=== PATIENT | female | born 1935 | race Caucasian/White ===

== ENCOUNTER 2017-01-08 10:29 | Inpatient (IN) | payer OTHER ==
--- NOTE | ~2017-01-08 | US84 ---
[id number] [facility] [address] [place], [place] [address] [id number] I MR#: [id number] Acc #: [id number] NAME: BRISSA WEBB : 1935 SEX: F STUDY DATE/TIME: 01/08/2017 17:34 UNIT: [facility] ROOM: 564 STUDY DESCRIPTION: US LE Veins Complete Deng Stdy Attending Physician: Nuha Joya M.D. Ordering Physician: Nuha Joya M.D. Primary Care Physician: Demetrio Chandler M.D. MEDICAL IMAGING REPORT This report is preliminary unless electronic signature is present EXAM Lower extremity venous ultrasound, complete bilateral, 01/08/2017 HISTORY Bilateral swelling and oozing for 2 days. No history of DVT. No blood thinners. Bilateral pain, swelling, oozing 2 days. TECHNIQUE Venous ultrasound examination of both lower extremities was performed using grayscale, spectral Doppler and color flow Doppler imaging. FINDINGS The examination is negative. There is no evidence of deep venous thrombus from the groin to the lower calf bilaterally. Visualized greater saphenous veins are also patent. IMPRESSION Negative examination. No evidence of lower extremity deep venous thrombosis. ADDENDUM: Some areas of subcutaneous edema noted in the bilateral lower extremities. Dictated by... Alex Louis M.D. THIS IS AN ELECTRONICALLY VERIFIED REPORT Alex Louis M.D. at 01/09/2017 11:31 AM Sandeep TD: 01/09/2017 04:58 JOB #: [id number] MEDICAL IMAGING REPORT Page 1 of 1 COPY
--- NOTE | ~2017-01-08 | EKG ---
PATIENT: BRISSA WEBB UNIT #: [id number] Ventricular Rate: 107 BPM Atrial Rate: 107 BPM P-R Interval: 114 ms QRS Duration: 76 ms Q-T Interval: 330 ms QTC Calculation(Bezet): 440 ms P [place]: 81 degrees Calculated R [place]: 57 degrees Calculated T [place]: 60 degrees Diagnosis Line: Sinus tachycardia Diagnosis Line: Right atrial enlargement Diagnosis Line: Borderline ECG Diagnosis Line: No previous ECGs available Diagnosis Line: Confirmed by DRAKE CAROLINA MD ([id number]) on Diagnosis Line: 01/08/2017 10:20:03 PM INTERPRETING MD: JAD
--- NOTE | ~2017-01-08 | CT57 ---
[facility] A Service of [facility] RADIOLOGY TEXT RESULTS PATIENT: BRISSA WEBB LOCATION: [facility] [place] [facility] 564-01 : 35 UNIT #: [id number] AGE: [address]: Jessica Guerrero MD SEX: F ORDER DR: [id number] [facility] [address] [place], [place] [address] [id number] I MR#: [id number] Acc #: [id number] NAME: BRISSA WEBB : 1935 SEX: F STUDY DATE/TIME: 01/08/2017 17:26 UNIT: [facility] [place] [facility] ROOM: [facility] STUDY DESCRIPTION: CT Chest Wo Cont Attending Physician: Nuha Joya M.D. Ordering Physician: Nuha Joya M.D. Primary Care Physician: Demetrio Chandler M.D. MEDICAL IMAGING REPORT This report is preliminary unless electronic signature is present EXAM CT of the chest HISTORY Sepsis, COPD exacerbation, chronic respiratory failure. Lung nodule. FINDINGS CT chest performed without administration of intravenous contrast. Comparison 03/31/2014. This CT examination was performed with one or more of the following radiation dose reduction techniques: automatic exposure control, adjustment of mA and/or kV according to patient size, and iterative reconstruction. No axillary adenopathy. No mediastinal or hilar adenopathy. Heart normal in size. Coronary arterial calcifications. No pleural effusions. Posterior right hemidiaphragm eventration. Mid to posterior left hemidiaphragm eventration. Similar appearance on prior examination. Liver shows multiple calcified granulomata. No suspicious focal abnormality. The gallbladder contains a 3.1 cm calculus. It is otherwise unremarkable with no inflammatory change. No biliary ductal dilatation suggested. Multiple calcified granulomata in the spleen. Visualized pancreas, adrenal glands, kidneys unremarkable. Esophagus, stomach, visualized small bowel and colon notable for uncomplicated colonic diverticulosis. Pulmonary parenchyma shows extensive centrilobular and panlobular emphysema throughout the lungs. Mild apical subpleural fibrotic change. There is a relatively dense right middle lobe lateral segment 5-mm nodule. Increased in overall volume from the prior examination when it measured up to 4 mm in maximum. There is an 8 mm right lower lobe pulmonary nodule laterally. It measured 7 mm in March 2014. Probably not significantly changed and likely benign given minimal change since 2013. Subpleural atelectasis or fibrotic change right middle lobe anteriorly. Some patchy and linear densities at the right lung base posteriorly probably atelectatic in nature. Mild pneumonitis not excluded. There is no dense STS. [facility] A Service of [facility] RADIOLOGY TEXT RESULTS PATIENT: BRISSA WEBB LOCATION: [facility] [place] [facility] 564-01 : 35 UNIT #: [id number] AGE: [address]: Jessica Guerrero MD SEX: F ORDER DR: airspace disease. The left lung shows some areas of mild subpleural fibrotic change in the periphery of the lung. No suspicious nodule. Minimal dependent atelectasis or pneumonitis at the left lung base posteriorly. Chest radiograph earlier today raised the possibility of a left lung nodule. No suspicious nodule seen in the left lung. Atherosclerotic arterial calcifications. No aneurysm. The bony structures show mild T8 compression deformity new compared to 2014. Mild to moderate anterior wedge compression deformity T11 new compared to prior study. Moderate compression deformity T12. Some retropulsion of the posterior superior endplate of T12. There is mild mass effect on thecal sac and mild central spinal canal narrowing. I do not see clear indication of cord compression. There is a suggestion of visualized fracture planes in the superior endplate of T12. Possibility that this could be a subacute compression deformity could be considered. Correlate with symptoms and any known history of trauma. There is no paraspinal hematoma or inflammatory change. No other potential acute bony abnormalities are seen. IMPRESSION 1. Extensive emphysema. 2. Areas of subpleural fibrotic change at the apices and in the periphery of the left lung. No end-stage fibrosis. 3. There are some patchy and linear densities at the bilateral dependent lung bases right greater than left probably atelectatic in nature but areas of mild pneumonitis superimposed on architecturally distorted emphysematous lung could be considered. 4. 5 mm nodule lateral segment right middle lobe image 104. It measured 4 mm in maximum diameter in 2013. It does appear to have increased in overall volume compared to the prior study. 6-month CT followup recommended. There is an 8 mm right lower lobe pulmonary nodule at the same level. It measured 7 mm in 2014. Probably no significant change and likely benign in nature. Attention at followup recommended. No other pulmonary nodules are seen. 5. Atherosclerotic arterial calcifications in coronary and systemic circulation. 6. Uncomplicated cholelithiasis. 7. Uncomplicated colonic diverticulosis on very limited views of colon and upper abdomen. 8. Eventration of the bilateral posterior diaphragms left greater than right. Similar appearance on prior study. 9. Compared to 2014, there are mild to moderate chronic-appearing compression deformities of the T8 and T11 vertebral bodies without significant spinal canal compromise. There is an age indeterminate at least subacute and potentially chronic compression deformity of the T12 vertebral body. Moderate in degree. No underlying bony destructive process is seen. These are favored to be osteoporotic compression deformities. At T12, there is retropulsion of posterior-superior endplate with some mild spinal canal narrowing but STS. [facility] A Service of [facility] RADIOLOGY TEXT RESULTS PATIENT: BRISSA WEBB LOCATION: [facility] [place] [facility] 564-01 : 35 UNIT #: [id number] AGE: [address]: Jessica Guerrero MD SEX: F ORDER DR: no definite cord contact. Please correlate with patient's presentation and symptoms. If there is ongoing concern regarding the thoracic spine, it could be further evaluated with MRI if the patient is a candidate or dedicated CT. Dictated by... Alex Louis M.D. THIS IS AN ELECTRONICALLY VERIFIED REPORT Alex Louis M.D. at 01/09/2017 11:31 AM SINA/rebekah TD: 01/09/2017 05:57 JOB #: [id number] MEDICAL IMAGING REPORT Page 1 of 1 COPY
--- NOTE | ~2017-01-08 | CR72 ---
[facility] A Service of [facility] RADIOLOGY TEXT RESULTS PATIENT: BRISSA WEBB LOCATION: [facility] 564 : 35 UNIT #: [id number] AGE: [address]: Jessica Guerrero MD SEX: F ORDER DR: [id number] [facility] [address] [place], [place] [address] [id number] I MR#: [id number] #: [id number] NAME: BRISSA WEBB : 1935 SEX: F STUDY DATE/TIME: 01/08/2017 11:36 UNIT: [facility] ROOM: [facility] STUDY DESCRIPTION: CR Chest Single View Portable Attending Physician: Nuha Joya M.D. Ordering Physician: Bunny John M.D. Primary Care Physician: Demetrio Chandler M.D. MEDICAL IMAGING REPORT This report is preliminary unless electronic signature is present EXAM Portable chest radiograph INDICATIONS Shortness of breath and cough, this started today. Patient does have a history of left breast cancer. FINDINGS Comparison made to prior exam from March 24, 2014. Heart size is within normal limits. Patient does have background emphysematous changes. There is eventration of the left hemidiaphragm, which was present on the prior study, as well as some chronic-appearing scarring at both lung bases. There is a suggestion of a nodular density within the left hemithorax that potentially could be related to summation of shadows, underlying nodule is not excluded. It is new when compared to the exam from March 2014. Further evaluation with dedicated CT of the chest, preferably with contrast, is suggested. Dictated by... Katerina Whalen M.D. THIS IS AN ELECTRONICALLY VERIFIED REPORT Katerina Whalen M.D. at 01/10/2017 1:21 PM AFF/psc TD: 01/08/2017 20:11 JOB #: [id number] MEDICAL IMAGING REPORT Page 1 of 1 COPY
--- NOTE | ~2017-01-08 | DS ---
Unit #: [id number] #: [id number] Patient: BRISSA WEBB [id number] [address] [place], [place] [address] [id number] I MR#: [id number] NAME: BRISSA WEBB ROOM: 564 Age: 81 Sex: F Admission Date: 01/08/2017 : 1935 Discharge Date: Attending Physician: Jessica Guerrero M.D. Primary Care Physician: Demetrio Chandler M.D. DISCHARGE SUMMARY DISCHARGE DIAGNOSES 1. Sepsis from right leg cellulitis. 2. Right leg cellulitis, acute on chronic. 3. Chronic obstructive pulmonary disease with mild exacerbation. 4. Chronic hypoxic respiratory failure, on two liters of oxygen. 5. Right lung nodule, needs repeat CT in six month's time to follow up. 6. Mild protein malnutrition. 7. Mild hyponatremia. 8. 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 9. Smoking. 10. Hypothyroidism. 11. History of breast cancer, status post lumpectomy and radiation treatment. CONSULTATIONS None. PROCEDURES None. DIAGNOSTIC STUDIES LABORATORY: Wound cultures are growing serratia. Sodium 135, potassium 4, and creatinine 0.6. WBC 9.7, hemoglobin 12.6, and platelets 171,000. Blood cultures negative. Troponin is negative. Lactic acid 1. Initial lactic acid was 2/2. BNP 44. IMAGING: Chest x-ray shows chronic-appearing lungs and nodular density left side. CT chest without contrast shows extensive emphysema. A 5 mm lateral segment right middle lobe nodule present. Six-month CT followup needed. Ultrasound of the extremities negative for DVT. ALLERGIES Iodinated dye, sulfa, and codeine. DISCHARGE MEDICATIONS 1. DuoNeb 3 mL inhalation 4 times daily p.r.n. shortness of breath. 2. Flonase nasal spray 1 b.i.d. 3. Clobetasol ointment apply topically b.i.d. 4. Bactroban ointment apply topically b.i.d. along with clobetasol. 5. Duratears ophthalmic ointment p.r.n. 6. Senna 2 tablets p.o. daily. 7. Mucinex D ER 1 tablet p.o. b.i.d. p.r.n. cough. 8. Astelin 2 sprays nasally b.i.d. 9. Fosamax 70 mg p.o. every Monday. Unit #: [id number] #: [id number] Patient: BRISSA WEBB 10. Singulair 10 mg at bedtime. 11. Levaquin 750 p.o. daily for 7 days. 12. Synthroid 88 mcg p.o. daily. 13. Vitamin D3 at 2000 units p.o. daily. HOSPITAL COURSE An 81-year-old admitted because of right leg swelling and edema. Sepsis from right leg cellulitis. Patient received antibiotics. Resolved. Right leg cellulitis. Patient was given broad spectrum antibiotics. Blood cultures negative. Wound cultures are growing serratia which is sensitive to Levaquin. Patient received IV Zosyn and vancomycin which will be changed to p.o. Levaquin. Right lung nodule with severe emphysema. Patient needs a CT in six month's time and follow with family physician for that. Chronic obstructive pulmonary disease with exacerbation, mild, stable. Did not need any Solu-Medrol. Continue with DuoNeb. Hypothyroidism, stable. DISPOSITION Discharge home. FOLLOWUP 1. With family physician in one week's time. 2. With home health for dressing changes. 3. With [facility] in one week's time with Dr. Pollack. 1. Dictated by... Gibran Leonardo/aram TD: 01/11/2017 15:00 JOB #: [id number] DISCHARGE SUMMARY Page 1 of 1 X Jessica Guerrero MD X DISCHARGE SUMMARY
--- NOTE | ~2017-01-08 | HP ---
Unit #: [id number] #: [id number] Patient: BRISSA WEBB [id number] [address] [place], [place] [address] [id number] MR#: [id number] NAME: BRISSA WEBB ROOM: Age: 81 Sex: F Admission Date: 01/08/2017 : 1935 Attending Physician: Bunny John M.D. Primary Care Physician: Demetrio Chandler M.D. HISTORY AND PHYSICAL CHIEF COMPLAINT Bilateral lower extremity swelling. HISTORY OF PRESENT ILLNESS The patient is an 81-year-old female with past medical history of COPD, chronic respiratory failure, hypothyroidism, breast cancer, tobacco abuse, who presented to the emergency department for evaluation of the above. The patient states that she has had a three to four day history of worsening lower extremity swelling. She states that the swelling and redness as well as pain became acutely worse within the past 24 hours. She states that the pain woke her from sleep this morning around 3:30. She denies any trauma to the legs. No fever. She has had increasing shortness of breath and productive cough. She denies any chest pain. She states that her appetite has been okay. No vomiting or diarrhea. Of note, the patient was seen in an immediate care center about three weeks ago and diagnosed with pneumonia. She was placed on doxycycline as well as prednisone. The last dose of prednisone was yesterday. In the emergency department, initial pulse and blood pressure were 105 and 146/61 respectively, temperature 98.1. Laboratory is notable for white blood cell count of 24.2. Chest x-ray showed a background of emphysematous changes as well as a nodular density on the left. CT of the chest was recommended for further evaluation. She was given clindamycin in the emergency department. She is being admitted to [facility] for evaluation and further treatment. PAST MEDICAL HISTORY 1. The patient denies any hospitalizations in the past 10 years. 2. COPD, followed by (1) , ([facility]). 3. Chronic respiratory failure on 2 L of oxygen at night. 4. Hypothyroidism. 5. History of breast cancer, status post lumpectomy and radiation treatment followed by Dr. Bernabe. PAST SURGICAL HISTORY 1. Lumpectomy. 2. Multiple eye surgeries. 3. Hysterectomy. 4. Hernia repair. SOCIAL HISTORY The patient's grandson lives with her. She smokes a half pack of Unit #: [id number] #: [id number] Patient: TRACEYBRISSA cigarettes daily. She denies alcohol use. She walks without assistance. CODE STATUS Her code status is a full code. FAMILY HISTORY Notable for her dad dying at the age of 90. Her mother at the age of 80. She had some type of congenital heart defect. ALLERGIES Sulfa, codeine, IV dye. HOME MEDICATIONS 1. Azelastine. 2. Singulair. 3. Fosamax. 4. Combivent. 5. Flonase. 6. Synthroid. 7. Mucinex. 8. Senna S. 9. Vitamin D3. Home medications will need to be reviewed and verified. REVIEW OF SYSTEMS A complete review of systems is negative, except as indicated in the HPI. DIAGNOSTIC STUDIES LABORATORY: Complete blood count notable for white blood cell count of 24.2. Comprehensive metabolic panel notable for sodium of 131, chloride 93, glucose 142. BNP is 44. Troponin is less than 0.05. IMAGING: Chest x-ray shows emphysematous changes with a nodular density on the left. CT of the chest was recommended. CARDIOVASCULAR: EKG showed sinus tachycardia with a rate of 107 beats per minute. PHYSICAL EXAMINATION VITAL SIGNS: Temperature is 98.1, pulse 105, respirations 16, blood pressure 146/61. Blood pressure dropped to 87/51 during the course of her evaluation in the emergency department. She was given 1 L of normal saline. Most recent blood pressure is 122/53. Oxygen saturation 96% on room air. GENERAL: The patient is a female, who is awake and alert in no acute distress. HEENT: The head is atraumatic. The patient does have proptosis involving the right eye as well as asymmetry involving the eyes. That is not a new problem. Mucous membranes are moist. NECK: Supple. Trachea is midline. CARDIOVASCULAR: Regular rate and rhythm. LUNGS: Demonstrate scattered expiratory wheezes. Breathing is not labored with conversation. ABDOMEN: Soft, nontender with bowel sounds present in all four quadrants. EXTREMITIES: The right lower extremity is erythematous circumferentially Unit #: [id number] #: [id number] Patient: BRISSA WEBB from the ankle to just distal to the knee. It is weeping, tender to palpation. There is a palpable 2+ dorsalis pedis pulse. The left lower extremity shows 2+ pitting edema with mild erythema as well. NEUROLOGIC: The patient is awake and alert. She follows commands. PYSCHIATRIC: Mood and affect are normal. The patient is cooperative. SKIN: Demonstrates the previously described abnormalities. ASSESSMENT The patient is an 81-year-old female with: 1. Right lower extremity cellulitis: The patient received clindamycin in the emergency department. 2. Sepsis: The patient's white blood cell count is 24.2. She has been on prednisone for chronic obstructive pulmonary disease exacerbation with the last dose being yesterday. 3. Chronic obstructive pulmonary disease exacerbation: The patient recently completed doxycycline and prednisone. 4. Chronic respiratory failure on 2 L of oxygen at night, followed by (2) . 5. Lung nodule: The patient is allergic to IV dye. The patient states that she has been told she has a nodule in the past but thought it was on right side. 6. Hypothyroidism. 7. History of blood culture, status post lumpectomy and radiation treatment. 8. Tobacco abuse. PLAN 1. Admit to intermediate level. 2. Normal saline at 75 mL at hour. 3. Healthy heart diet. 4. Blood cultures x2. 5. Wound culture and sensitivity. 6. Vancomycin IV and Zosyn IV for cellulitis pending further workup. 7. Bilateral lower extremity venous Doppler. 8. Sepsis protocol with STAT lactic acid and repeat. 9. Supplemental oxygen. 10. DuoNeb. 11. Mucinex. 12. CT of the chest without contrast for further evaluation of lung nodule. The patient cannot have IV dye due to allergy. 13. TSH. 14. Serial cardiac enzymes. 15. P.r.n. Tylenol. 16. Monitor blood pressure closely. 17. Repeat labs in the morning. 18. Additional workup and consultants based on above. Dictated by Nuha Joya M.D. Brandi TD: 01/08/2017 16:21 JOB #: [id number] Unit #: [id number] #: [id number] Patient: BRISSA WEBB HISTORY AND PHYSICAL Page 1 of 1 X Nuha Joya MD HISTORY AND PHYSICAL
[2017-01-08 11:42] LABS: BASOPHIL% 0.2 % (0-2.5); EOSINOPHIL# 0.1 X10e3 (0-0.7); EOSINOPHIL% 0.2 % (0.0-7.0); HEMATOCRIT 47.4 % (35.0-45.0); HEMOGLOBIN 15.5 gm/dL (12.0-16.0); LYMPHOCYTE# 1.8 X10e3 (1.0-3.5); LYMPHOCYTE% 7.2 % (17.0-45.0); MEAN CELL VOLUME 88.5 FL (83-96); MEAN CORPUSCULAR HGB CONC 32.8 g/dL (30-36); MEAN PLATELET VOLUME 9.8 FL (6.5-11.5); MONOCYTE# 1.8 X10e3 (0-1.0); MONOCYTE% 7.3 % (3.0-12.0); NEUTROPHIL# 20.5 X10e3 (1.5-7.1); NEUTROPHIL% 85.1 % (40-75); PLATELET COUNT 217 X10e3 (140-420); RED BLOOD COUNT 5.35 X10e (3.90-5.30); WHITE BLOOD COUNT 24.2 X10e3 (4.0-10.5)
[2017-01-08 11:43] LABS: DIFF IND YES
[2017-01-08 12:05] LABS: BILIRUBIN, DIRECT 0.2 mg/dL (0.0-0.2); BILIRUBIN,INDIRECT 1.1 mg/dL (0.0-0.9); BILIRUBIN,TOTAL 1.3 mg/dL (0.2-2.0); BUN/CREATININE RATIO 18.75; CREATININE SERUM 0.8 mg/dL (0.6-1.4); GLOM FILT RATE Estimated 69.2 mL/min (>60); POTASSIUM 4.1 mmol/L (3.5-5.1); PROTEIN TOTAL SERUM 6.9 g/dL (6.0-8.3)
[2017-01-08 12:06] LABS: ANISOCYTOSIS SL; PLATELET ESTIMATE NORMAL (NORMAL)
[2017-01-08] MEDS ORDERED: PATIENT'S PHARMACY (12:48)
[2017-01-08 13:04] LABS: POC - CKMB <1.0 ng/mL (0.0-7.9); POC - TROPONIN <0.05 ng/mL (<=0.05)
[2017-01-08] MEDS ORDERED: AZELASTINE137 MCG/0. INH (13:13)
[2017-01-08] MEDS ORDERED: SINGULAIR PO (13:14)
[2017-01-08] MEDS ORDERED: FOSAMAX70 MG PO (13:25)
[2017-01-08] MEDS ORDERED: COMBIVENT RESPIM4 GM INH (13:28)
[2017-01-08] MEDS ORDERED: COMBIVENT U/D3 ML INH (13:30)
[2017-01-08] MEDS ORDERED: FLONASE 0.05% N16 G1 (13:31)
[2017-01-08] MEDS ORDERED: SYNTHROID88 MCG PO (13:32)
[2017-01-08] MEDS ORDERED: MUCINEX D ER T1 EAC1 PO (13:33)
[2017-01-08] MEDS ORDERED: SENNA-S TABLET1 EAC1 PO (13:33)
[2017-01-08] MEDS ORDERED: VITAMIN D32000 UNI1 PO (13:34)
[2017-01-08 21:32] LABS: CK TOTAL 32 IU/L (26-140)
[2017-01-09 01:31] LABS: CK TOTAL 33 IU/L (26-140)
[2017-01-09 07:03] LABS: HEMATOCRIT 39.1 % (35.0-45.0); MEAN CELL VOLUME 89.8 FL (83-96); MEAN CORPUSCULAR HEMOGLOBIN 28.9 PG (28-34); MEAN CORPUSCULAR HGB CONC 32.2 g/dL (30-36); MEAN PLATELET VOLUME 9.8 FL (6.5-11.5); RED BLOOD COUNT 4.36 X10e (3.90-5.30); RED CELL DISTRIBUTION WIDTH 13.9 % (11.0-15.5); WHITE BLOOD COUNT 12.1 X10e3 (4.0-10.5)
[2017-01-09 07:06] LABS: HEMOGLOBIN 12.6 gm/dL (12.0-16.0)
[2017-01-09 07:40] LABS: ALBUMIN SERUM 2.7 g/dL (3.5-5.0); BILIRUBIN,TOTAL 1.6 mg/dL (0.2-2.0); BUN/CREATININE RATIO 16.25; CALCIUM SERUM 8.1 mg/dL (8.4-10.2); CREATININE SERUM 0.8 mg/dL (0.6-1.4); GLOM FILT RATE Estimated 69.2 mL/min (>60); POTASSIUM 3.5 mmol/L (3.5-5.1)
[2017-01-10 05:54] LABS: HEMATOCRIT 39.6 % (35.0-45.0); MEAN CELL VOLUME 90.2 FL (83-96); MEAN CORPUSCULAR HEMOGLOBIN 29.6 PG (28-34); MEAN CORPUSCULAR HGB CONC 32.8 g/dL (30-36); MEAN PLATELET VOLUME 9.4 FL (6.5-11.5); RED BLOOD COUNT 4.39 X10e (3.90-5.30); RED CELL DISTRIBUTION WIDTH 14.4 % (11.0-15.5); WHITE BLOOD COUNT 10.2 X10e3 (4.0-10.5)
[2017-01-10 06:42] LABS: ALBUMIN SERUM 2.9 g/dL (3.5-5.0); BILIRUBIN,TOTAL 1.2 mg/dL (0.2-2.0); BUN/CREATININE RATIO 11.11; CALCIUM SERUM 8.2 mg/dL (8.4-10.2); CREATININE SERUM 0.9 mg/dL (0.6-1.4); MAGNESIUM 1.9 mg/dL (1.6-3.0); POTASSIUM 3.9 mmol/L (3.5-5.1); PROTEIN TOTAL SERUM 5.5 g/dL (6.0-8.3)
[2017-01-11 06:36] LABS: BASOPHIL# 0.1 X10e3 (0-0.3); BASOPHIL% 0.7 % (0-2.5); EOSINOPHIL# 0.5 X10e3 (0-0.7); EOSINOPHIL% 4.9 % (0.0-7.0); HEMATOCRIT 38.6 % (35.0-45.0); HEMOGLOBIN 12.6 gm/dL (12.0-16.0); MEAN CELL VOLUME 88.9 FL (83-96); MEAN CORPUSCULAR HEMOGLOBIN 29.1 PG (28-34); MEAN CORPUSCULAR HGB CONC 32.7 g/dL (30-36); MEAN PLATELET VOLUME 9.3 FL (6.5-11.5); MONOCYTE% 10.4 % (3.0-12.0); NEUTROPHIL# 7.2 X10e3 (1.5-7.1); PLATELET COUNT 171 X10e3 (140-420); RED BLOOD COUNT 4.34 X10e (3.90-5.30); RED CELL DISTRIBUTION WIDTH 14.2 % (11.0-15.5); WHITE BLOOD COUNT 9.7 X10e3 (4.0-10.5)
[2017-01-11 06:37] LABS: DIFF IND NO
[2017-01-11 07:37] LABS: CREATININE SERUM 0.6 mg/dL (0.6-1.4); GLOM FILT RATE Estimated 85.5 mL/min (>60)
[2017-01-11] MEDS ORDERED: BACTROBAN15 GM TOP (16:04)
[2017-01-11] MEDS ORDERED: CLOBETASOL PROP30 GM (16:07)
[2017-01-11] MEDS ORDERED: LUBRICANT EYE3.5 G2 OU (16:20)
[2017-01-11] MEDS ORDERED: LEVAQUIN750 MG PO (16:22)
== END 2017-01-11 17:32 | disposition home or self-care (01) | DRG 872 ==
LOC: CED 10:29 → C5C 15:45 → CEDOF 15:45 → CED 16:05 → C5C 18:35 → CEDOF 18:35 → C5C 18:35
PROVIDERS: Emergency Medicine; Family Medicine; Internal Medicine
DX: A41.9 Sepsis, unspecified organism (principal); J96.11 Chronic respiratory failure with hypoxia; J44.1 Chronic obstructive pulmonary disease with (acute) exacerbation; E44.1 Mild protein-calorie malnutrition; E87.1 Hypo-osmolality and hyponatremia; L03.116 Cellulitis of left lower limb; R91.1 Solitary pulmonary nodule; F17.210 Nicotine dependence, cigarettes, uncomplicated; E03.9 Hypothyroidism, unspecified; Z85.3 Personal history of malignant neoplasm of breast; Z88.5 Allergy status to narcotic agent; Z88.2 Allergy status to sulfonamides; Z91.041 Radiographic dye allergy status; Z68.29 Body mass index [BMI] 29.0-29.9, adult
CPT/HCPCS: 36415; 71010; 71250; 80048; 80053; 80076; 80202; 82550; 82553; 82947; 83605; 83735; 83880; 84443; 84484; 85025; 85027; 87040; 87070; 87077; 87186; 87205; 93005; 93970; 94640; 94760; 96365; 97110; 97116; 97161; 97165; 99285; G8978-GP; G8979-GP; G8987-GO; G8988-GO; J1650; J2543; J3370; J3475

== ENCOUNTER 2017-03-22 13:43 | Observation (INO) | payer OTHER ==
[~2017-03-22] VITALS: Ht 154.9 cm; Wt 73.2 kg
--- NOTE | ~2017-03-22 | HP ---
Unit #: [id number] #: [id number] Patient: BRISSA WEBB [id number] [facility]. [place], [place] [address] [id number] MR#: [id number] NAME: BRISSA WEBB ROOM: 71279 Age: 81 Sex: F Admission Date: 03/22/2017 : 1935 Attending Physician: Nuha Joya M.D. Primary Care Physician: Demetrio Chandler M.D. HISTORY AND PHYSICAL CHIEF COMPLAINT Shortness of breath, cough. HISTORY OF PRESENT ILLNESS The patient is an 81-year-old female with a past medical history of COPD, chronic respiratory failure, lung nodule, hypothyroidism, breast cancer, and lymphedema, who presented to the emergency department for evaluation of the above. The patient states that she has had a two to three day history of increasing shortness of breath and productive cough. She denies any fever and no chest pain. She denies any vomiting or diarrhea and no urinary symptoms. The patient was initially seen at an urgent care center and told that her oxygen level was low and to come to the emergency department for further evaluation. In the emergency department, initial oxygen saturation was 96% on two liters. Chest x-ray shows no acute abnormality. She is being admitted to [facility] for evaluation and further treatment. PAST MEDICAL HISTORY 1. Admission to [facility] January 08, 2017, for sepsis secondary to right lower extremity cellulitis. Blood cultures from that admission showed no growth after five days. Wound culture from January 08, 2017, grew 3+ serratia. She was discharged home on Levaquin for an additional seven days. She has had persistent edema and is being seen by the [facility] [place] regarding the legs wounds. The last visit was yesterday. The legs were wrapped at that time. She states that visiting nurses have been changing the wraps three times weekly. 2. Chronic obstructive pulmonary disease followed by [facility]. 3. Chronic respiratory failure on two liters of oxygen at night. 4. Right lung nodule noted on CT of the chest that was done January 08, 2017. Six-month followup is recommended. 5. Hypothyroidism. 6. History of breast cancer, status post lumpectomy and radiation, followed by Dr. Bernabe. PAST SURGICAL HISTORY 1. Lumpectomy. 2. Multiple eye surgeries. 3. Hysterectomy. 4. Hernia repair. Unit #: [id number] #: [id number] Patient: BRISSA WEBB SOCIAL HISTORY The patient's grandson lives with her. She continues to smoke less than a half pack of cigarettes daily. She denies alcohol use. She walks without assistance. Her code status is a Full Code. FAMILY HISTORY Notable for her dad dying at the age of 90. Her mother at the age of 80. She had some type of congenital heart defect. ALLERGIES Sulfa and codeine, as well as IV dye. HOME MEDICATIONS 1. Fosamax 70 mg weekly. 2. Albuterol q.6 hours p.r.n. 3. Azelastine nasal spray daily. 4. Chlorhexidine topical body wash p.r.n. 5. Vitamin D 1000 units daily. 6. Mucinex-DM q.12 hours p.r.n. 7. Flonase daily. 8. Advair 100/50 inhaled b.i.d. 9. Combivent q.6 hours p.r.n. 10. Synthroid 88 mcg daily. 11. Singulair 10 mg daily. 12. Prednisone taper. 13. Promethazine 5 mL t.i.d. p.r.n. 14. Symbicort 160/4.5 inhaled daily. REVIEW OF SYSTEMS A complete review of systems is negative except as indicated in the HPI. The patient states that she was on an antibiotic (the patient thinks possibly Levaquin), as well as prednisone taper in February for possible COPD exacerbation. PHYSICAL EXAMINATION VITAL SIGNS: Temperature 97.7, pulse 92, respirations 18, blood pressure 148/68, and oxygen saturation 96% on 2 liters. GENERAL: Patient is a very pleasant female who is awake, alert, and in no acute distress. HEENT: Head is atraumatic. Mucous membranes are moist. NECK: Supple. Trachea is midline. CARDIOVASCULAR: Regular rate and rhythm. LUNGS: Inspiratory and expiratory wheezes. Breathing is not labored with conversation. ABDOMEN: Soft and nontender with bowel sounds present in all four quadrants. EXTREMITIES: Wrapped bilaterally. They are nontender. NEUROLOGIC: Patient is awake and alert. She follows commands. PSYCHIATRIC: Mood and affect are normal. Patient is cooperative. SKIN: Skin of examined areas is warm and dry. DIAGNOSTIC STUDIES LABORATORY: Troponin is less than 0.05. Complete blood count is essentially normal. Lactic acid is 1.2. Comprehensive metabolic panel notable for a chloride of 98. BNP is 33. IMAGING: Chest x-ray shows no significant change. Unit #: [id number] #: [id number] Patient: BRISSA WEBB CARDIOLOGY: EKG shows normal sinus rhythm with a rate of 94 beats per minute. ASSESSMENT The patient is an 81-year-old female with: 1. Chronic obstructive pulmonary disease exacerbation. 2. Chronic respiratory failure on two liters of oxygen per nasal cannula at night. 3. Lung nodule, right lung. Patient needs a repeat CT in July 2017. 4. Hypothyroidism. Patient had a TSH January 08, 2017, that was 2.03. 5. History of breast cancer, status post lumpectomy and radiation, followed by Dr. Bernabe. 6. Tobacco abuse. 7. Lymphedema followed by the [facility]. PLAN 1. Admit for observation to intermediate level. 2. Regular diet. 3. Supplemental oxygen. 4. DuoNebs q.4 hours while awake and q.2 hours p.r.n. 5. Solu-Medrol 80 mg IV q.12 hours. 6. Doxycycline 100 mg p.o. b.i.d. 7. Serial cardiac enzymes. 8. P.r.n. Tylenol. 9. Protonix for GI prophylaxis since the patient will be on Solu-Medrol. 10. SCDs for DVT prophylaxis. 11. Wound Care consult regarding lymphedema. 12. Repeat labs in the morning. 13. Continue home Mucinex. 14. Additional workup and consultants based on above. 1. Dictated by Gibran Shah TD: 03/22/2017 18:03 JOB #: [id number] HISTORY AND PHYSICAL Page 1 of 1 X Nuha Joya MD HISTORY AND PHYSICAL
--- NOTE | ~2017-03-22 | DS ---
Unit #: [id number] #: [id number] Patient: BRISSA WEBB [id number] [place], [place] [address] [id number] MR#: [id number] NAME: BRISSA WEBB ROOM: 324 Age: 81 Sex: F Admission Date: 03/22/2017 : 1935 Discharge Date: 03/24/2017 Attending Physician: Jessica Guerrero M.D. Primary Care Physician: Demetrio Chandler M.D. DISCHARGE SUMMARY DISCHARGE DIAGNOSES 1. Chronic obstructive pulmonary disease with exacerbation. 2. Chronic respiratory failure on 2 liters oxygen. 3. Lung nodule on the right side. Needs repeat CT in 07/2017. 4. Hypothyroidism. 5. History of breast cancer, status post lumpectomy and radiation. 6. Smoking. 7. Lymphedema, following at [facility], with chronic leg swelling. CONSULTANTS None. PROCEDURES PERFORMED None. DIAGNOSTIC DATA LABORATORY: Glucose 135, white blood cell count 14.9, hemoglobin 13.1, platelets 219. Blood cultures negative. Sodium 134, potassium 4.1, creatinine 0.6, troponins negative. BNP 33. Lactic acid 1.2. ALLERGIES Iodinated contrast, oral and IV dye, sulfa, codeine. DISCHARGE MEDICATIONS 1. Albuterol nebulizer q.6 h. p.r.n. shortness of breath. 2. Symbicort 160 mcg 1 puff inhalation daily. 3. Duo-Nebs inhalation q.6 h. p.r.n. shortness of breath. 4. Prednisone tapering dose. 5. Flonase 1 spray nasally daily. 6. Promethazine 5 ml p.o. t.i.d. p.r.n. cough. 7. Mucinex 600 mg 1 p.o. b.i.d. 8. Astelin 1 spray nasally daily. 9. Chlorhexidine applied topically p.r.n. 10. Fosamax 17 mg p.o. every Monday. 11. Singulair 10 mg daily. 12. Doxycycline 100 mg p.o. b.i.d. 13. Synthroid 88 mcg p.o. daily. 14. Vitamin D 1000 p.o. daily. HOSPITAL COURSE The patient is an 81-year-old admitted because of shortness of breath. Chronic obstructive pulmonary disease with exacerbation: Started on IV Unit #: [id number] #: [id number] Patient: TRACEY,BRISSA Solu-Medrol and duo-nebs. Currently lung are clear. Breathing better. No wheezing. The patient will be discharged on doxycycline and prednisone tapering dose along with her home medications. Hyperglycemia: Likely secondary to steroids. The patient received sliding scale during the hospital course. Hemoglobin A1c result is pending at the time of dictation. Follow up with primary care physician for results. Lung nodule: Right lung. The patient needs repeat CT in 07/2017. Follow up with primary care physician for results. DISPOSITION Discharge home. FOLLOWUP Follow up with family physician in one week time. Dictated by... Gibran Leonardo/fawn TD: 03/24/2017 10:51 JOB #: [id number] CC: Demetrio Chandler M.D. DISCHARGE SUMMARY Page 1 of 1 X Jessica Guerrero MD X DISCHARGE SUMMARY
--- NOTE | ~2017-03-22 | EKG ---
PATIENT: BRISSA WEBB UNIT #: [id number] Ventricular Rate: 94 BPM Atrial Rate: 94 BPM P-R Interval: 126 ms QRS Duration: 68 ms Q-T Interval: 368 ms QTC Calculation(Bezet): 460 ms P [place]: 67 degrees Calculated R [place]: 40 degrees Calculated T [place]: 56 degrees Diagnosis Line: Normal sinus rhythm Diagnosis Line: Nonspecific ST abnormality Diagnosis Line: Abnormal ECG Diagnosis Line: When compared with ECG of 08-JAN-2017 11:18, Diagnosis Line: No significant change was found Diagnosis Line: Confirmed by DRAKE CAROLINA MD ([id number]) on Diagnosis Line: 03/22/2017 10:49:41 PM INTERPRETING MD: JAD
--- NOTE | ~2017-03-22 | CR72 ---
[facility] A Service of [facility] & [facility] RADIOLOGY TEXT RESULTS PATIENT: BRISSA WEBB LOCATION: [facility] 324-01 : 35 UNIT #: [id number] AGE: [address]: Jessica Guerrero MD SEX: F ORDER DR: [id number] [facility] [address] [place], [place] [address] [id number] MR#: [id number] Acc #: [id number] NAME: BRISSA WEBB : 1935 SEX: F STUDY DATE/TIME: 03/22/2017 14:28 UNIT: CEDOF ROOM: 49264 STUDY DESCRIPTION: CR Chest Single View Portable Attending Physician: Nuha Joya M.D. Ordering Physician: Marya Jenkins Primary Care Physician: Demetrio Chandler M.D. MEDICAL IMAGING REPORT This report is preliminary unless electronic signature is present EXAM Single view of the chest dated 03/22/2017 COMPARISON Single view chest dated 01/08/2017. HISTORY Shortness of air and congestion today. FINDINGS Single view of the chest was obtained. There is no significant interval new pleural effusion or pneumothorax. There is diffuse prominence of the interstitial markings suggestive of interstitial lung disease. It is more prominent in lung bases with probably some associated atelectasis. Heart is of normal size. Dictated by... Ben Gonzalez M.D. THIS IS AN ELECTRONICALLY VERIFIED REPORT Ben Gonzalez M.D. at 03/23/2017 5:24 PM CPR/rnr TD: 03/22/2017 18:16 JOB #: [id number] MEDICAL IMAGING REPORT Page 1 of 1 COPY
[~2017-03-22 13:43] MED LIST: AZELASTINE137 MCG/0. INH; BACTROBAN15 GM TOP; CLOBETASOL PROP30 GM; COMBIVENT RESPIM4 GM INH; COMBIVENT U/D3 ML INH; FLONASE 0.05% N16 G1; FOSAMAX70 MG PO; LEVAQUIN750 MG PO; LUBRICANT EYE3.5 G2 OU; MUCINEX D ER T1 EAC1 PO; PATIENT'S PHARMACY; SENNA-S TABLET1 EAC1 PO; SINGULAIR PO; SYNTHROID88 MCG PO; VITAMIN D32000 UNI1 PO
[2017-03-22 14:52] LABS: POC - CKMB 2.9 ng/mL (0.0-7.9); POC - TROPONIN <0.05 ng/mL (<=0.05)
[2017-03-22 15:07] LABS: BASOPHIL% 0.4 % (0-2.5); EOSINOPHIL# 0.3 X10e3 (0-0.7); EOSINOPHIL% 2.8 % (0.0-7.0); HEMATOCRIT 42.6 % (35.0-45.0); HEMOGLOBIN 14.3 gm/dL (12.0-16.0); LYMPHOCYTE% 10.6 % (17.0-45.0); MEAN CELL VOLUME 86.4 FL (83-96); MEAN CORPUSCULAR HEMOGLOBIN 29.1 PG (28-34); MEAN CORPUSCULAR HGB CONC 33.6 g/dL (30-36); MONOCYTE% 10.5 % (3.0-12.0); NEUTROPHIL# 7.5 X10e3 (1.5-7.1); NEUTROPHIL% 75.7 % (40-75); PLATELET COUNT 205 X10e3 (140-420); RED BLOOD COUNT 4.93 X10e (3.90-5.30); RED CELL DISTRIBUTION WIDTH 14.4 % (11.0-15.5); WHITE BLOOD COUNT 9.9 X10e3 (4.0-10.5)
[2017-03-22 15:11] LABS: DIFF IND NO
[2017-03-22 15:29] LABS: ALBUMIN SERUM 3.7 g/dL (3.5-5.0); BILIRUBIN, DIRECT 0.2 mg/dL (0.0-0.2); BILIRUBIN,INDIRECT 0.5 mg/dL (0.0-0.9); BILIRUBIN,TOTAL 0.7 mg/dL (0.2-2.0); BUN/CREATININE RATIO 8.57; CALCIUM SERUM 8.7 mg/dL (8.4-10.2); CREATININE SERUM 0.7 mg/dL (0.6-1.4); GLOM FILT RATE Estimated 81.3 mL/min (>60); POTASSIUM 3.5 mmol/L (3.5-5.1)
[2017-03-22] MEDS ORDERED: ALBUTEROL MININEB NEB (16:08)
[2017-03-22] MEDS ORDERED: AZELASTINE137 MCG/01 (16:08)
[2017-03-22] MEDS ORDERED: VITAMIN D1000 UNI1 PO (16:09)
[2017-03-22] MEDS ORDERED: CHLORHEXIDINE FL1 ML TOP (16:09)
[2017-03-22] MEDS ORDERED: FLONASE ALLERG9.9 ML (16:10)
[2017-03-22] MEDS ORDERED: ADVAIR 100-501 EACH INH (16:10)
[2017-03-22] MEDS ORDERED: MUCINEX DM ER1 EACH PO (16:10)
[2017-03-22] MEDS ORDERED: SINGULAIR PO (16:11)
[2017-03-22] MEDS ORDERED: SYNTHROID88 MCG PO (16:11)
[2017-03-22] MEDS ORDERED: COMBIVENT RESPIM4 GM INH (16:11)
[2017-03-22] MEDS ORDERED: PREDNISONE PO (16:11)
[2017-03-22] MEDS ORDERED: PROMETHAZI6.25 MG/5 PO (16:13)
[2017-03-22] MEDS ORDERED: SYMBICORT INH (16:14)
[2017-03-22 21:07] LABS: CK TOTAL 50 IU/L (26-140)
[2017-03-23 03:09] LABS: CK TOTAL 45 IU/L (26-140)
[2017-03-23 05:54] LABS: HEMATOCRIT 40.8 % (35.0-45.0); HEMOGLOBIN 13.6 gm/dL (12.0-16.0); MEAN CELL VOLUME 86.8 FL (83-96); MEAN CORPUSCULAR HEMOGLOBIN 28.9 PG (28-34); MEAN CORPUSCULAR HGB CONC 33.2 g/dL (30-36); RED BLOOD COUNT 4.7 X10e (3.90-5.30); RED CELL DISTRIBUTION WIDTH 14.5 % (11.0-15.5); WHITE BLOOD COUNT 8.3 X10e3 (4.0-10.5)
[2017-03-23 07:24] LABS: BUN/CREATININE RATIO 11.66; CALCIUM SERUM 8.4 mg/dL (8.4-10.2); CREATININE SERUM 0.6 mg/dL (0.6-1.4); GLOM FILT RATE Estimated 85.5 mL/min (>60); POTASSIUM 4.1 mmol/L (3.5-5.1)
[2017-03-24 05:51] LABS: HEMATOCRIT 38.6 % (35.0-45.0); HEMOGLOBIN 13.1 gm/dL (12.0-16.0); MEAN CELL VOLUME 86.4 FL (83-96); MEAN CORPUSCULAR HEMOGLOBIN 29.3 PG (28-34); MEAN CORPUSCULAR HGB CONC 33.9 g/dL (30-36); RED BLOOD COUNT 4.47 X10e (3.90-5.30); RED CELL DISTRIBUTION WIDTH 14.2 % (11.0-15.5)
[2017-03-24 05:55] LABS: WHITE BLOOD COUNT 14.9 X10e3 (4.0-10.5)
[2017-03-24] MEDS ORDERED: DOXYCYCLINE PO (11:10)
== END 2017-03-24 13:43 | disposition home or self-care (01) ==
LOC: CED 13:43 → CEDOF 17:10 → CED 17:41 → C3A PCU 18:36 → CEDOF 18:36 → C3A PCU 03-23 08:29
PROVIDERS: Emergency Medicine; Family Medicine; Internal Medicine
DX: J44.1 Chronic obstructive pulmonary disease with (acute) exacerbation (principal); J96.10 Chronic respiratory failure, unspecified whether with hypoxia or hypercapnia; R91.1 Solitary pulmonary nodule; E03.9 Hypothyroidism, unspecified; I89.0 Lymphedema, not elsewhere classified; F17.210 Nicotine dependence, cigarettes, uncomplicated; Z85.3 Personal history of malignant neoplasm of breast; Z79.899 Other long term (current) drug therapy
CPT/HCPCS: 36415; 71010; 80048; 80076; 82550; 82553; 82947; 83036; 83605; 83880; 84484; 85025; 85027; 87040; 93005; 94640; 94664; 94760; 96374; 96376; 99285; G0378; J1815; J2920